=== PATIENT | male | born 1975 | race Caucasian/White ===

== ENCOUNTER 2019-06-12 11:56 | Emergency (ER) | payer BC, OTHER ==
[2019-06-12 12:05] VITALS: BP 184/102; PULSE 84; TEMP 98.4; BMI 32.3
[2019-06-12] MEDS ORDERED: IBUPROFEN 400 MG TABLET (FP) PO ONE ×2 (12:29→12:41)
--- NOTE | 2019-06-12 13:36 | PDOC ---
History of Present Illness - General Chief Complaint: Injury Stated Complaint: RT CALF PAIN Time Seen by Provider: 06/12/19 11:57 - History of Present Illness Initial Comments: 06/12/19 13:38 43-year-old male with no significant past medical history presents to the emergency Department with right calf pain. 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 He states planting his R foot solidly on the ground but felt as though his calf was twisted. He reports his pain is worse when dorsiflexing his foot and also when walking on his heel. Denies RLE numbness or tingling. No treatments tried. Denies any falling or other injuries. He was otherwise in his usual state of good health. He denies any fevers, chills, dizziness, weakness, numbness, chest pain, shortness of breath, nausea/vomiting/diarrhea, abdominal pain, lower extremity edema. No recent travel or immobility. Past History - Past Medical History Allergies/Adverse Reactions: Allergies Allergy/AdvReac Type Severity Reaction Status Date / Time No Known Allergies Allergy Verified 06/12/19 11:57 Home Medications: Ambulatory Orders NK [No Known Home Medication] 02/01/15 COPD: No - Suicide/Smoking/Psychosocial Hx Smoking History: Never smoked Have you smoked in the past 12 months: No Information on smoking cessation initiated: No Hx Alcohol Use: No Drug/Substance Use Hx: No Substance Use Type: None Review of Systems - Review of Systems Comments:: 06/12/19 13:55 GENERAL/CONSTITUTIONAL: No fever or chills. No weakness. HEAD, EYES, EARS, NOSE AND THROAT: No change in vision. No ear pain or discharge. No sore throat. GASTROINTESTINAL: No nausea, vomiting, diarrhea or constipation. GENITOURINARY: No dysuria, frequency, or change in urination. CARDIOVASCULAR: No chest pain or shortness of breath. RESPIRATORY: No cough, wheezing, or hemoptysis. MUSCULOSKELETAL: No joint or muscle swelling. +right calf pain. No neck or back pain. SKIN: No rash NEUROLOGIC: No headache, vertigo, loss of consciousness, or change in strength/ sensation. ENDOCRINE: No increased thirst. No abnormal weight change. HEMATOLOGIC/LYMPHATIC: No anemia, easy bleeding, or history of blood clots. ALLERGIC/IMMUNOLOGIC: No hives or skin allergy. *Physical Exam - Vital Signs Last Vital Signs Temp Pulse Resp BP Pulse Ox 98.4 F 84 20 184/102 H 100 06/12/19 11:57 06/12/19 11:57 06/12/19 11:57 06/12/19 11:57 06/12/19 11:57 - Physical Exam Comments: 06/12/19 13:56 GENERAL: Awake, alert, and fully oriented, in no acute distress HEAD: No signs of trauma EYES: PERRLA, EOMI, sclera anicteric, conjunctiva clear NECK: Normal ROM, supple, no lymphadenopathy, JVD, or masses LUNGS: Breath sounds equal, clear to auscultation bilaterally. No wheezes, and no crackles HEART: Regular rate and rhythm, normal S1 and S2, no murmurs, rubs or gallops ABDOMEN: Soft, nontender, normoactive bowel sounds. No guarding, no rebound. No masses EXTREMITIES: Normal range of motion, no edema. No clubbing or cyanosis. No cords, erythema. No R knee, tib/fib, ankle bony ttp. Compartments are soft. +R focal mid calf posterior ttp. 2+ R foot DP and TP pulses. Mims's test with movement of foot but less than LLE NEUROLOGICAL: Normal speech, cranial nerves intact, equal strength and senstion b/l. Normal strength dorsi and plantar flexion b/l. SKIN: Warm, Dry, normal turgor, no rashes or lesions noted. 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 Jessica Balderas who recommends posterior splint in plantar flexion and pt can follow up tomorrow with Dr. Lopez Posterior splint placed, RLE remains NVI. Crutches given to pt - instructed on use and to be NWB on R foot Pt's pain well controlled with motrin Rpt BP down to 144/84 w/o intervention (elevated on arrival to 184/100) He will proceed downstairs at this time to Dr. Lopez office to schedule appt for tomorrow I discussed the physical exam findings, ancillary test results and final diagnoses with the patient. I answered all of the patient's questions. The patient was satisfied with the care received and felt comfortable with the discharge plan and treatment plan. The patient will call their primary care physician within 24 hours to arrange follow-up and will return to the Emergency Department with any new, persistent or worsening symptoms. *DC/Admit/Observation/Transfer Diagnosis at time of Disposition: Right calf pain - Discharge Dispostion Disposition: HOME Condition at time of disposition: Stable Decision to Admit order: No - Referrals Referrals: Samuel Lopez MD [Staff Physician] - - Patient Instructions Printed Discharge Instructions: DI for Calf Muscle Strain Additional Instructions: Proceed to Dr. Lopez office in the basement to schedule an appointment for tomorrow. We discussed your case with JOSEPH Balderas. Take motrin 600mg every 6 hours as needed for pain. Apply ice to your calf 4 times a day for 20 mins at a time. Use crutches to walk until you follow up tomorrow with Dr. Lopez. Return to the emergency department if you have any new, worsening, or concerning symptoms such as numbness, tingling, or worsening pain. - Post Discharge Activity - Attestations Physician Attestion: 06/12/19 13:36 I, Dr. Leno Orosco MD, attest that this document has been prepared under my direction and personally reviewed by me in its entirety. I further attest, that it accurately reflects all work, treatment, procedures and medical decision -making performed by me.
== END 2019-06-12 13:46 | disposition home or self-care (01) ==
LOC: FER 11:56
DX: M79.661 Pain in right lower leg (principal); X58.XXXA Exposure to other specified factors, initial encounter; Y93.89 Activity, other specified; Y92.89 Other specified places as the place of occurrence of the external cause; Y99.0 Civilian activity done for income or pay
CPT/HCPCS: 99281-25